=== PATIENT | male | born 1940 | race Caucasian/White ===

== ENCOUNTER 2019-09-07 08:00 | Outpatient (CLI) | payer MEDICARE, OTHER | END 2019-09-07 23:59 | disposition home or self-care (01) | LOC: LAB.WCP 08:00 | DX: C61 Malignant neoplasm of prostate (principal) | CPT/HCPCS: 36415; 82565 ==

== ENCOUNTER 2019-09-14 09:16 | Outpatient (CLI) | payer MEDICARE, OTHER ==
[2019-09-14] MEDS ORDERED: IOVERSOL 320 100 ML VIAL IVP ONE ×2 (09:38→11:09)
[2019-09-14] MEDS ORDERED: IOVERSOL 320 50 ML VIAL ONE (09:38)
[2019-09-14 10:50] LABS: CREATININE 0.8 mg/dL (0.6-1.2)
[2019-09-14] MEDS ORDERED: IOVERSOL 320 50 ML VIAL PO ONE (11:09)
--- NOTE | 2019-09-15 22:10 | CT Report ---
Reason: PROSTATE CA Procedure Date: 09/14/2019 Accession Number: [id number] / [id number] Procedure: CT - Abdomen/Pelvis W CPT Code: Final Report FULL RESULT: EXAM: CT ABDOMEN AND PELVIS EXAM DATE: 09/14/2019 11:08 AM. CLINICAL HISTORY: PROSTATE cancer. COMPARISONS: ABDOMEN/PELVIS W/WO 11/09/2013 11:35 AM BONE SCAN 09/14/2019 12:56 PM. TECHNIQUE: Routine helical CT imaging was performed through the abdomen and pelvis. IV contrast: 90 mL Optiray 320. Enteric contrast: Positive. Reconstructions: Coronal and sagittal. In accordance with CT protocol optimization, one or more of the following dose reduction techniques were utilized for this exam: automated exposure control, adjustment of mA and/or KV based on patient size, or use of iterative reconstructive technique. FINDINGS: Lung Bases: Unremarkable. Liver: Normal. Gallbladder/Bile Ducts: Normal gallbladder. Mildly dilated common bile duct without visualized obstructing stone or lesion, similar to prior and may be senescent. Spleen: Normal. Pancreas: Mild atrophy. Adrenal Glands: Tiny right adrenal nodule unchanged. Normal left adrenal. Kidneys: There are several small cysts bilaterally. No enhancing mass. Mild bilateral cortical scarring. No hydronephrosis. Peritoneal Cavity/Bowel: No obstruction. There is diverticulosis of the descending and sigmoid colon without diverticulitis. No free fluid, free air or adenopathy. No acute inflammatory process. Pelvic Organs: The bladder is unremarkable. The prostate gland is surgically absent. No abnormal soft tissue within or adjacent to the surgical bed. No pelvic lymphadenopathy. Retroperitoneum: No lymphadenopathy. Severe atherosclerosis. Mild ectasia of the infrarenal aorta without aneurysm, measuring up to 2.9 cm Bones: No aggressive or blastic osseous lesion. The bones may be demineralized. Other: Small fat-containing inguinal hernias bilaterally. IMPRESSION: No evidence of metastatic disease. Surgical changes from prostatectomy. RADIA
--- NOTE | 2019-09-16 07:52 | Nuclear Medicine Report ---
Reason: PROSTATE CA Procedure Date: 09/14/2019 Accession Number: [id number] / [id number] Procedure: NM - Bone Whole Body CPT Code: Final Report FULL RESULT: EXAM: BONE SCAN EXAM DATE: 09/14/2019 02:45 PM. CLINICAL HISTORY: PROSTATE CA. COMPARISON: ABDOMEN/PELVIS W09/14/2019 11:04 AM 01/03/2014 8:38 AM. TECHNIQUE: Following the intravenous administration of 33.1 mCi of technetium 99m MDP and an appropriate delay, a whole-body scan was performed in anterior and posterior projections. Site-specific spot views of the region of interest were obtained in various projections. FINDINGS: Normal renal radiotracer uptake and bladder activity. Normal soft tissue activity. Overall normal osseous uptake. Mild multilevel cervical and thoracic spinal uptake is probably degenerative. Asymmetric mild focal uptake at the lower right SI joint region is similar to prior and probably degenerative. Probable degenerative uptake at the acromioclavicular joints, wrists, knees. No suspicious focal uptake. IMPRESSION: 1. No convincing scintigraphic evidence of osseous metastasis. RADIA
== END 2019-09-14 09:17 | disposition home or self-care (01) ==
LOC: DI 09:16
PROVIDERS: ATTEND Radiology Radiation Oncology
DX: C61 Malignant neoplasm of prostate (principal); Z90.79 Acquired absence of other genital organ(s)
CPT/HCPCS: 36415; 74177; 78306; 82565; Q9967

== ENCOUNTER 2021-08-03 08:48 | Outpatient (CLI) | payer MEDICARE, OTHER | END 2021-08-03 08:49 | disposition critical access hospital (66) | LOC: EMS 08:48 | DX: R53.1 Weakness (principal); R20.2 Paresthesia of skin | CPT/HCPCS: A0425; A0429 ==

== ENCOUNTER 2021-08-03 09:06 | Emergency (ER) | payer MEDICARE, OTHER ==
[2021-08-03] MEDS ORDERED: ENALAPRILAT 1.25 MG/ML VIAL IVP STA (09:17)
--- NOTE | 2021-08-03 09:18 | ED Physician Documentation ---
PD HPI FOCAL NEURO - Stated complaint Stated Complaint: NUMBNESS - History obtained from History obtained from: Patient - History of Present Illness Timing - onset: Today, Last night Timing - duration: Minutes Timing - details: Gradual onset, Now resolved Severity of deficit: Mild Weakness: No: Arm, Hand Numbness: Arm, Hand, Right. No: Face, Leg Associated symptoms: Other (doubled vision/ diplopia for 5-10 minutes last evening, and feeling of right arm/hand humbness without weakness. No headache with it.). No: Headache, Nausea / vomiting Contributing factors: negative: Anticoagulated, Atrial fibrillation Baseline status: positive: A&OX3, ambulatory, indep Similar symptoms before: Has not had sx before Recently seen: Not recently seen Review of Systems Constitutional: denies: Fever, Chills Nose: denies: Rhinorrhea / runny nose, Congestion Throat: denies: Sore throat Cardiac: denies: Chest pain / pressure, Palpitations, Pedal edema, Calf pain Respiratory: denies: Dyspnea GI: denies: Nausea, Vomiting, Diarrhea PD PAST MEDICAL HISTORY - Past Medical History Cardiovascular: Hypertension (on Losartan) Respiratory: None Neuro: None Endocrine/Autoimmune: None - Present Medications Home Medications: Ambulatory Orders Medication Instructions Recorded Confirmed Atorvastatin Calcium 40 mg PO DAILY 08/03/21 08/03/21 Clopidogrel [Plavix] 75 mg PO DAILY 30 Days #30 tablet 08/03/21 Losartan [Cozaar] 50 mg PO DAILY 08/03/21 08/03/21 Metoprolol Succinate [Toprol Xl] 25 mg PO DAILY 30 Days #30 tablet 08/03/21 Omeprazole Magnesium 20 mg PO DAILY 08/03/21 08/03/21 - Allergies Allergies/Adverse Reactions: Allergies Allergy/AdvReac Type Severity Reaction Status Date / Time No Known Drug Allergies Allergy Verified 08/03/21 09:17 PD ED PE NORMAL - Vitals Vital signs reviewed: Yes - General General: Alert and oriented X 3, No acute distress, Well developed/nourished - HEENT HEENT: Atraumatic, Ears normal, Moist mucous membranes, Pharynx benign - Neck Neck: Supple, no meningeal sign, No adenopathy, No bruit - Cardiac Cardiac: RRR, No murmur - Respiratory Respiratory: Clear bilaterally - Abdomen Abdomen: Soft, Non tender - Derm Derm: Normal color, Warm and dry - Extremities Extremities: No tenderness to palpate, Normal ROM s pain, No edema, No calf tenderness / cord - Neuro Neuro: Alert and oriented X 3, No motor deficit, Normal speech Eye Opening: Spontaneous Motor: Obeys Commands Verbal: Oriented GCS Score: 15 NIHSS - Level of Consciousness Level of consciousness: (0) Alert, Keenly responsive LOC Questions: (0) Answers both Q's correct LOC Commands: (0) Performs both correctly - Gaze Best Gaze: (0) Normal - Visual Visual: (0) No loss - Facial Palsy Facial Palsy: (0) Normal, symmetrical movement - Motor Arms (both separate) Motor Arm (right): (0) No drift Motor Arm (left): (0) No drift - Motor Legs (both separate) Motor Leg (right): (0) No drift Motor Leg (left): (0) No drift - Limb Ataxia Limb Ataxia: (0) Absent - Sensory Sensory: (0) Normal - Dysarthria Dysarthria: (0) Normal - Extinction and Inattention (formally neg Extinction and inattention: (0) No abnormality Results - Vitals Vitals: Vital Signs - 24 hr 08/03/21 08/03/21 08/03/21 09:18 09:51 10:21 Temperature 37.2 C Heart Rate 73 66 72 Respiratory 22 20 18 Rate Blood Pressure 195/104 H 166/71 H 148/74 H O2 Saturation 97 97 98 08/03/21 08/03/21 08/03/21 10:30 11:00 11:30 Temperature Heart Rate 74 71 72 Respiratory 18 13 18 Rate Blood Pressure 136/74 H 140/65 H 141/76 H O2 Saturation 97 96 96 08/03/21 08/03/21 08/03/21 12:00 12:30 13:00 Temperature Heart Rate 67 70 65 Respiratory 15 18 19 Rate Blood Pressure 133/71 H 130/70 140/76 H O2 Saturation 100 97 98 08/03/21 08/03/21 13:30 14:00 Temperature Heart Rate 67 65 Respiratory 16 18 Rate Blood Pressure 132/70 H 140/69 H O2 Saturation 97 98 Oxygen O2 Source Room air - EKG (time done) 09:222 Rate: Rate (enter#) (71) Rhythm: NSR [place]: Normal Intervals: Normal [place] QRS: Normal Ischemia: Normal ST segments. No: ST elevation c/w ischemia, ST depression - Labs Labs: Laboratory Tests 08/03/21 08/03/21 08/03/21 09:31 09:31 09:31 WBC 5.9 RBC 4.18 L Hgb 12.1 L Hct 37.0 L MCV 88.5 MCH 28.9 MCHC 32.7 RDW 14.1 Plt Count 258 MPV 8.8 Neut # (Auto) 3.7 Lymph # (Auto) 1.4 L [place] # (Auto) 0.7 Eos # (Auto) 0.1 Baso # (Auto) 0.0 Absolute Nucleated RBC 0.00 Nucleated RBC % 0.0 ESR Sodium 134 L Potassium 4.4 Chloride 102 Carbon Dioxide 26 Anion Gap 6.0 BUN 15 Creatinine 0.7 Estimated GFR (MDRD) 109 Glucose 104 H Calcium 8.8 Magnesium 2.2 Total Bilirubin 0.7 AST 15 ALT 12 Alkaline Phosphatase 49 Troponin I High Sens 7.5 Total Protein 7.3 Albumin 3.8 Globulin 3.5 Albumin/Globulin Ratio 1.1 Lipase 28 08/03/21 09:31 WBC RBC Hgb Hct MCV MCH MCHC RDW Plt Count MPV Neut # (Auto) Lymph # (Auto) [place] # (Auto) Eos # (Auto) Baso # (Auto) Absolute Nucleated RBC Nucleated RBC % ESR 30 H Sodium Potassium Chloride Carbon Dioxide Anion Gap BUN Creatinine Estimated GFR (MDRD) Glucose Calcium Magnesium Total Bilirubin AST ALT Alkaline Phosphatase Troponin I High Sens Total Protein Albumin Globulin Albumin/Globulin Ratio Lipase - Rads (name of study) angio head/neck Radiology: Prelim report reviewed (No bleed, focal brain abnormality nor flow abnormality. Neck portion showing 70-80% stenoses bilateral proximal carotids. ), See rad report carotid dopplers Radiology: Prelim report reviewed (c/w prior CT study. Velocities recorded. This study was at request of vascular surgery. ), See rad report PD MEDICAL DECISION MAKING - ED course Complexity details: reviewed results, re-evaluated patient (Sounds TIA. Normal head CTA. Neck CTA showing 80% stenoses bilaterally.), considered differential (BP quite elevated initially here. Consider hypertensive urgency leading to symptoms versus TIA/CVA, or bleed. ), d/w patient, d/w sales consultant residential manager (Rebeca BRAXTON for Vascular surgery service. Asked to get Doppler U/S for velocities and comparisions, BP control and antiplatelet and they will see patient this week in office. ) Departure - Departure Disposition: 01 Home, Self Care Clinical Impression: Hypertensive urgency, Carotid stenosis, bilateral, TIA (transient ischemic attack) Condition: Stable Record reviewed to determine appropriate education?: Yes Follow-Up: PRABHAKAR PEREZ MD [Physician No Access] - Hari Reyes MD [Primary Care Provider] - Prescriptions: Clopidogrel [Plavix] 75 mg PO DAILY 30 Days #30 tablet Metoprolol Succinate [Toprol Xl] 25 mg PO DAILY 30 Days #30 tablet Comments: Your symptoms are concerning for transient alteration in blood flow to the brain. This could have been an effect from the blood pressure being very high transiently in conjunction with some blockage partially of your carotid blood vessels. I talked with the vascular surgeon on-call for [facility]. Their phone number is [phone]. They suggested good blood pressure control and antiplatelet medication. They had requested the ultrasound of the neck as well. Call the vascular surgery office later today for an appointment later this week or early next week in follow-up of this. They want to assess and discuss with you potential interventions of the blockages versus following them over time. The concern would be the symptoms he would had with it. Return if recurrent episodes of symptoms. Continue your current medications. To that add metoprolol 25 mg daily and also clopidogrel 75 mg daily. I [facility] your [facility]. Discharge Date/Time: 08/03/21 14:15
[2021-08-03 09:48] LABS: BASOPHILS % (AUTO) 0.7 %; EOSINOPHILS # (AUTO) 0.1 10^3/uL (0.0-0.7); EOSINOPHILS % (AUTO) 1.5 %; HGB - HEMOGLOBIN 12.1 g/dL (14.0-18.0); LYMPHOCYTES # (AUTO) 1.4 10^3/uL (1.5-3.5); LYMPHOCYTES % (AUTO) 23.7 %; MEAN CORPUSCULAR HEMOGLOBIN 28.9 pg (27.0-31.0); MEAN CORPUSCULAR HGB CONC 32.7 g/dL (32.0-36.0); MEAN CORPUSCULAR VOLUME 88.5 fL (80.0-94.0); MEAN PLATELET VOLUME 8.8 fL (7.4-11.4); MONOCYTES # (AUTO) 0.7 10^3/uL (0.0-1.0); MONOCYTES % (AUTO) 11.8 %; NEUTROPHILS # (AUTO) 3.7 10^3/uL (1.5-6.6); NEUTROPHILS % (AUTO) 62.1 %; PLT - PLATELET COUNT 258 10^3/uL (130-450); RED BLOOD COUNT 4.18 10^6/uL (4.70-6.10); RED CELL DISTRIBUTION WIDTH 14.1 % (12.0-15.0); WHITE BLOOD COUNT 5.9 x10^3/uL (4.8-10.8)
[2021-08-03 09:53] LABS: ALBUMIN 3.8 g/dL (3.2-5.5); ALBUMIN/GLOBULIN RATIO 1.1 (1.0-2.2); BILIRUBIN,TOTAL 0.7 mg/dL (0.2-1.0); CALCIUM 8.8 mg/dL (8.5-10.3); CREATININE 0.7 mg/dL (0.6-1.2); MAGNESIUM 2.2 mg/dL (1.7-2.8); POTASSIUM 4.4 mmol/L (3.5-5.0); TOTAL PROTEIN 7.3 g/dL (6.7-8.2)
[2021-08-03] MEDS ORDERED: iohexoL-300 100 ML VIAL ONE (10:02)
--- NOTE | 2021-08-03 10:34 | CT Report ---
PROCEDURE: ANGIO NECK W INDICATIONS: L sided facial droop, L neck pain CONTRAST: IV CONTRAST: Isovue 300 ml: 80 PO CONTRAST: *NO PO CONTRAST TECHNIQUE: After the administration of intravenous contrast, 1.5 mm axial sections acquired from the aortic arch to the [place]. Coronal 3-D maximum intensity projection (MIP) and/or volume rendering ref ormats were then performed. For radiation dose reduction, the following was used: automated exposur e control, adjustment of mA and/or kV according to patient size. COMPARISON: Correlation is made with the accompanying brain angiogram, 08/03/2021. FINDINGS: Image quality: Excellent. Carotid system: The great vessels demonstrate a conventional anatomy as they arise from the aortic a rch. The origins of the common carotid arteries appear patent. The common carotid arteries demonstr ate normal calibers and courses. The bifurcation regions demonstrate atherosclerotic calcification a nd irregularity. There is 70-80% narrowing seen involving the left proximal internal carotid artery. The right internal carotid artery demonstrates approximately 80% narrowing proximally. The more dista l internal carotid arteries demonstrate normal course and caliber. Posterior circulation: The origins of the vertebral arteries appear patent. The more superior porti ons of the vertebral arteries demonstrate normal caliber. Both vertebral arteries demonstrate mild to moderate tortuosity. Soft tissues: Visualized neck soft tissues demonstrate no suspicious abnormalities. The thyroid is normal in size and there are no incidental findings. This patient with a given history of left-sided facial droop, and is given to the course of the left-sided facial nerve, including within the left pa rotid gland. No definite masses are seen. No similar changes can be seen at the lung apices, includin g subpleural bleb formation. Presumed scarring can be seen at the lung apices. Bones: No suspicious bony lesions. Visualized cervical spine appears normally aligned. Moderate l ower cervical spine degenerative changes are seen. IMPRESSION: Focal narrowing can be seen involving both proximal internal carotid arteries, with approximate 80% n arrowing on the right side and 70-80% narrowing of the left. No significant vertebral artery abnormality is seen. The estimate of stenosis included in the report of the imaging study was calculated using the NASCET method Reviewed by: Sylvester Ortiz MD on 08/03/2021 9:32 AM [facility] Approved by: Sylvester Ortiz MD on 08/03/2021 9:32 AM [facility] Station ID: [id number]
--- NOTE | 2021-08-03 10:36 | CT Report ---
PROCEDURE: ANGIO HEAD W/WO INDICATIONS: L sided facial droop CONTRAST: IV CONTRAST: Isovue 300 ml: 80 PO CONTRAST: *NO PO CONTRAST TECHNIQUE: Precontrast 4.5 mm thick angled axial sections acquired from the foramen magnum to the vertex. Afte r the administration of intravenous contrast, 1 mm thick sections acquired through the [place] is. Postcontrast 4.5 mm thick sections then re-acquired from the foramen magnum to the vertex. 3-di mensional xlrxtxj-kndzxxygw-cunlptvtbr (MIP) and/or volume rendering reformats were acquired of the c entral intracranial vasculature. For radiation dose reduction, the following was used: automated ex posure control, adjustment of mA and/or kV according to patient size. COMPARISON: Correlation is made with the accompanying neck CT angiogram, 08/03/2021. FINDINGS: Image quality: There is streak artifact seen through the skull base. The study is mildly limited by bolus timing, with venous contamination. Anterior circulation: Intracranial internal carotid arteries are normal in size and flow. The flow within the paired anterior cerebral arteries is normal and symmetric. The flow within the middle cer ebral arteries is normal and symmetric. The anterior communicating artery is seen. No aneurysms are seen. Posterior circulation: Visualized portions of the vertebral arteries demonstrate normal caliber, and join to form a normal appearing basilar artery. Incidental note is made of a prominent left flexographic printing machinist ior communicating artery, with a diminutive left P1 segment. 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 Flow within the posterior cerebral arteries is normal and symmetric. N o aneurysms are seen. CSF spaces: Ventricles are normal in size and shape. Basal cisterns are patent. No extra-axial flu id collections. Brain: No midline shift. No intracranial bleeds or masses. Steven-white matter interface appears int act. Age-appropriate brain parenchymal volume loss and chronic small vessel ischemic change can be se en. In this patient with a presenting history of left-sided facial droop, history is given to the course of the left facial nerve, including within the parotid gland. No masses are detected on this study. Skull and face: Calvarium and facial bones appear intact, without suspicious lesions. Sinuses: Visualized sinuses and mastoids are clear. IMPRESSION: No intracranial hemorrhage is seen. No significant intracranial abnormality is seen. No significant intracranial arterial abnormalities are seen. Age-appropriate brain parenchymal volume loss and chronic small vessel ischemic change can be seen. Reviewed by: Sylvester Ortiz MD on 08/03/2021 9:35 AM [facility] Approved by: Sylvester Ortiz MD on 08/03/2021 9:35 AM [facility] Station ID: [id number]
[2021-08-03] MEDS ORDERED: METOPROLOL SUCCINATE 25 MG TABLET PO STA (12:58)
[2021-08-03] MEDS ORDERED: CLOPIDOGREL 75 MG TABLET PO STA (12:59)
[2021-08-03 14:15] VITALS: BP 140/69
--- NOTE | 2021-08-03 14:17 | Ultrasound Report ---
PROCEDURE: Carotid Doppler Complete INDICATIONS: right arm numb transiently TECHNIQUE: Color and pulse Doppler interrogation was performed of both carotid systems, with image documentation and velocity measurements. COMPARISON: None. FINDINGS: Right side: Brachial blood pressure: 118/63 mm Hg. Common carotid artery peak systolic velocity: 72 cm/sec. Internal carotid artery peak systolic velocity: 203 cm/sec. Internal carotid artery end diastolic velocity: 41 cm/sec. External carotid artery peak systolic velocity: 162 cm/sec. ICA/CCA peak systolic ratio: 2.8 . Steven scale imaging description: Plaque is present the bifurcation Percent internal carotid artery stenosis: 50-69% stenosis . Vertebral artery: Flow direction is antegrade. Left side: Brachial blood pressure: 137/60 mm Hg. Common carotid artery peak systolic velocity: 100 cm/sec. Internal carotid artery peak systolic velocity: 235 cm/sec. Internal carotid artery end diastolic velocity: cm/sec. External carotid artery peak systolic velocity: 112 cm/sec. ICA/CCA peak systolic ratio: 2.35 . Steven scale imaging description: Plaque is present bifurcation Percent internal carotid artery stenosis: 50-69% stenosis likely at the higher end of the range . Vertebral artery: Flow direction is antegrade. IMPRESSION: 1. 50 to 69% stenosis of the right internal carotid artery. 2. 50-69% stenosis of the left internal carotid artery likely at the higher end of the range. The estimate of stenosis included in the report of the imaging study was calculated using the NASCET method Reviewed by: Cassie Buitrago MD on 08/03/2021 2:16 PM PST Approved by: Cassie Buitrago MD on 08/03/2021 2:16 PM PST Station ID: [id number]
[2021-08-03] MEDS ORDERED: iohexoL-300 100 ML VIAL IVP ONE (18:24)
== END 2021-08-03 14:15 | disposition home or self-care (01) ==
LOC: EDUNIT# → ED 09:06
DX: I65.23 Occlusion and stenosis of bilateral carotid arteries (principal); I16.0 Hypertensive urgency
CPT/HCPCS: 36415; 70496; 70498; 80053; 83690; 83735; 84484; 85025; 85651; 93005; 93880; 96374; 99284; A9270; Q9967

== ENCOUNTER 2021-10-26 06:48 | Outpatient (CLI) | payer MEDICARE, OTHER | END 2021-10-26 06:49 | disposition critical access hospital (66) | LOC: EMS 06:48 | DX: R07.9 Chest pain, unspecified (principal) | CPT/HCPCS: A0425; A0427 ==

== ENCOUNTER 2021-10-26 07:05 | Emergency (ER) | payer MEDICARE, OTHER ==
[2021-10-26] MEDS ORDERED: SODIUM CHLORIDE 0.9% 1,000 ML IV STA (07:15)
[2021-10-26 07:29] LABS: BASOPHILS % (AUTO) 0.5 %; EOSINOPHILS # (AUTO) 0.1 10^3/uL (0.0-0.7); EOSINOPHILS % (AUTO) 1.7 %; HCT - HEMATOCRIT 28.5 % (42.0-52.0); HGB - HEMOGLOBIN 8.9 g/dL (14.0-18.0); LYMPHOCYTES # (AUTO) 1.3 10^3/uL (1.5-3.5); LYMPHOCYTES % (AUTO) 21.1 %; MEAN CORPUSCULAR HGB CONC 31.2 g/dL (32.0-36.0); MEAN CORPUSCULAR VOLUME 86.4 fL (80.0-94.0); MEAN PLATELET VOLUME 8.5 fL (7.4-11.4); MONOCYTES # (AUTO) 0.6 10^3/uL (0.0-1.0); MONOCYTES % (AUTO) 10.6 %; NEUTROPHILS # (AUTO) 3.9 10^3/uL (1.5-6.6); NEUTROPHILS % (AUTO) 65.9 %; PLT - PLATELET COUNT 268 10^3/uL (130-450); RED CELL DISTRIBUTION WIDTH 15.4 % (12.0-15.0); WHITE BLOOD COUNT 5.9 x10^3/uL (4.8-10.8)
--- NOTE | 2021-10-26 07:38 | ED Physician Documentation ---
PD HPI CHEST PAIN - Stated complaint Stated Complaint: CP - Chief complaint Chief Complaint: Cardiac - History obtained from History obtained from: Patient - Additional information Additional information: The patient comes to the emergency department chief complaint of a dull ache in his chest that started this morning around 6:00. He states he had gotten up from bed to watch TV and noticed that he had this ache in the inferior substernal area. Patient states it did not radiate anywhere else. No other associated symptoms, such as nausea, shortness of breath, diaphoresis, or lightheadedness. Pain was approximately a 3 out of 10. Nothing made it better or worse. The patient states it lasted about 20 minutes, then resolved on its own. The patient denies any chest pain anytime recently. He states he had something similar happen back in the s and was admitted for cardiac work-up, at which time he was cleared and thought to have "stomach issues". The patient states that he takes omeprazole. He denies recent dyspnea on exertion. He has not been ill with anything recently. He states he has chronic slight swelling in his left lower extremity but this is not worse than usual. No pain in his extremities. The patient has a history of hypertension, for which he takes medication. He does not have a history of diabetes and quit smoking 30 years ago. He denies any known coronary artery disease in his family. The patient does note that he had a TIA in August and had bilateral carotid stenting around that time. He is on an anticoagulant for this, though he cannot remember which one. He states that he is pain-free at this time and has no complaints. He is a patient of Dr. Hari Reyes. Review of Systems Ten Systems: 10 systems reviewed and negative Constitutional: reports: Reviewed and negative Eyes: reports: Reviewed and negative Ears: reports: Reviewed and negative Nose: reports: Reviewed and negative Throat: reports: Reviewed and negative Cardiac: reports: Chest pain / pressure Respiratory: reports: Reviewed and negative GI: reports: Reviewed and negative : reports: Reviewed and negative Skin: reports: Reviewed and negative Musculoskeletal: reports: Reviewed and negative Neurologic: reports: Reviewed and negative Psychiatric: reports: Reviewed and negative Endocrine: reports: Reviewed and negative Immunocompromised: reports: Reviewed and negative PD PAST MEDICAL HISTORY - Past Medical History Past Medical History: Yes Cardiovascular: Hypertension Respiratory: None Neuro: CVA, TIA Endocrine/Autoimmune: None GI: GERD : Other Other Past Medical History: Prostate cancer - Past Surgical History Past Surgical History: Yes - Present Medications Home Medications: Ambulatory Orders Medication Instructions Recorded Confirmed Atorvastatin Calcium 40 mg PO DAILY 08/03/21 10/26/21 Clopidogrel [Plavix] 75 mg PO DAILY 30 Days #30 tablet 08/03/21 10/26/21 Losartan [Cozaar] 50 mg PO DAILY 08/03/21 10/26/21 Metoprolol Succinate [Toprol Xl] 25 mg PO DAILY 30 Days #30 tablet 08/03/21 10/26/21 Omeprazole Magnesium 20 mg PO DAILY 08/03/21 10/26/21 Aspirin [Aspirin EC] 81 mg PO DAILY 10/26/21 10/26/21 - Allergies Allergies/Adverse Reactions: Allergies Allergy/AdvReac Type Severity Reaction Status Date / Time No Known Drug Allergies Allergy Verified 10/26/21 07:15 - Social History Does the pt smoke?: No Smoking Status: Never smoker PD ED PE NORMAL - Vitals Vital signs reviewed: Yes - General General: Alert and oriented X 3, No acute distress, Well developed/nourished - HEENT HEENT: Atraumatic, PERRL, EOMI, Moist mucous membranes - Neck Neck: Supple, no meningeal sign - Cardiac Cardiac: RRR, No murmur, Strong equal pulses - Respiratory Respiratory: No respiratory distress, Clear bilaterally - Abdomen Abdomen: Soft, Non tender, Non distended - Derm Derm: Normal color, Warm and dry, No rash - Extremities Extremities: No deformity, No calf tenderness / cord, Other (Very slight pitting edema of left lower extremity compared to right.) - Neuro Neuro: Alert and oriented X 3, health care social worker 2-12 intact, Normal speech, Other (Grossly intact) - Psych Psych: Normal mood, Normal affect Results - Vitals Vitals: Vital Signs - 24 hr 10/26/21 10/26/21 10/26/21 07:13 07:30 08:00 Temperature 36.2 C L Heart Rate 76 71 67 Respiratory 15 22 12 Rate Blood Pressure 172/81 H 179/77 H 144/72 H O2 Saturation 100 98 100 10/26/21 10/26/21 10/26/21 08:30 09:00 09:30 Temperature Heart Rate 66 64 65 Respiratory 18 19 21 Rate Blood Pressure 149/72 H 146/73 H 149/71 H O2 Saturation 100 100 100 Oxygen O2 Source Room air - EKG (time done) 0715 Rate: Rate (enter#) (71) Rhythm: NSR [place]: Normal Intervals: Normal MA QRS: Normal Ischemia: Normal ST segments Compare to prior EKG: Old EKG unavailable Computer interpretation: Agree with computer - Labs Labs: Laboratory Tests 10/26/21 10/26/21 10/26/21 07:20 07:20 07:20 WBC 5.9 RBC 3.30 L Hgb 8.9 L Hct 28.5 L MCV 86.4 MCH 27.0 MCHC 31.2 L RDW 15.4 H Plt Count 268 MPV 8.5 Neut # (Auto) 3.9 Lymph # (Auto) 1.3 L [place] # (Auto) 0.6 Eos # (Auto) 0.1 Baso # (Auto) 0.0 Absolute Nucleated RBC 0.00 Nucleated RBC % 0.0 Sodium 137 Potassium 4.2 Chloride 105 Carbon Dioxide 24 Anion Gap 8.0 BUN 16 Creatinine 0.8 Estimated GFR (MDRD) 93 Glucose 111 H Calcium 8.8 Total Bilirubin 0.4 AST 14 ALT 12 Alkaline Phosphatase 44 Troponin I High Sens 8.3 Total Protein 6.6 L Albumin 3.5 Globulin 3.1 Albumin/Globulin Ratio 1.1 Lipase 34 10/26/21 09:02 WBC RBC Hgb Hct MCV MCH MCHC RDW Plt Count MPV Neut # (Auto) Lymph # (Auto) [place] # (Auto) Eos # (Auto) Baso # (Auto) Absolute Nucleated RBC Nucleated RBC % Sodium Potassium Chloride Carbon Dioxide Anion Gap BUN Creatinine Estimated GFR (MDRD) Glucose Calcium Total Bilirubin AST ALT Alkaline Phosphatase Troponin I High Sens 8.5 Total Protein Albumin Globulin Albumin/Globulin Ratio Lipase - Rads (name of study) Chest x-ray Radiology: Final report received, EMP read indepedently, See rad report (Negative) PD MEDICAL DECISION MAKING - ED course Complexity details: reviewed old records, reviewed results, re-evaluated patient, considered differential, d/w patient ED course: The patient was worked up with EKG, which was unremarkable, and laboratory studies, including 2 troponins, which were also negative. The patient was asymptomatic throughout his entire stay in the emergency department. I discussed with him that he will need to follow-up with Dr. Reyes soon as possible to discuss having a stress test done. We have discussed the usual indications for return. Departure - Departure Disposition: 01 Home, Self Care Clinical Impression: Chest pain Qualifiers: Chest pain type: unspecified Qualified Code(s): R07.9 - Chest pain, unspecified Condition: Stable Instructions: ED Chest Pain Atypical Unkn Cause Comments: Your laboratory studies, EKG, and chest x-ray all look good, including a repeat level of cardiac enzymes. As we have discussed, it is possible that your pain c ould be coming from your stomach, but it could also represent angina, it condition comes from having some clogged vessels in your heart. If not addressed, this condition can lead to heart attack later on. As such, it is important that you follow-up with Dr. Reyes to discuss having a stress test done to evaluate for this. If you develop severe chest pain that does not go away, particularly if it is associated with shortness of breath, nausea, sweating, or lightheadedness, he should return to the emergency department immediately. Otherwise, please make the soonest possible appointment with Dr. Reyes to follow-up on your symptoms. Discharge Date/Time: 10/26/21 09:38
[2021-10-26 07:41] LABS: ALBUMIN 3.5 g/dL (3.2-5.5); ALBUMIN/GLOBULIN RATIO 1.1 (1.0-2.2); BILIRUBIN,TOTAL 0.4 mg/dL (0.2-1.0); CALCIUM 8.8 mg/dL (8.5-10.3); CREATININE 0.8 mg/dL (0.6-1.2); POTASSIUM 4.2 mmol/L (3.5-5.0); TOTAL PROTEIN 6.6 g/dL (6.7-8.2)
--- NOTE | 2021-10-26 07:50 | XRAY Report ---
PROCEDURE: Chest 1 View X-Ray INDICATIONS: Chest pain TECHNIQUE: One view of the chest was acquired. COMPARISON: None available. FINDINGS: Surgical changes and devices: None. Lungs and pleura: No pleural effusions or pneumothorax. Lungs are clear. Mediastinum: Mediastinal contours appear normal. Heart size is normal. Bones and chest wall: No suspicious bony lesions. Overlying soft tissues appear unremarkable. IMPRESSION: No acute cardiopulmonary disease. Reviewed by: Nayana Irwin MD on 10/26/2021 7:48 AM PDT Approved by: Nayana Irwin MD on 10/26/2021 7:48 AM PDT Station ID: [id number]
--- OUTSIDE RECORDS SUMMARY | 2021-10-26 07:54 | EXTERNAL MEDICAL SUMMARY RPT | Continuity of Care Document ---
:1940 Author Organization [facility] Address [address] [place] [address] Phone Allergies No information. Encounters No information. Medications No information. 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
[2021-10-26 09:32] VITALS: BP 149/71
== END 2021-10-26 09:38 | disposition home or self-care (01) ==
LOC: EDUNIT# → ED 07:05
DX: R07.9 Chest pain, unspecified (principal); Z95.5 Presence of coronary angioplasty implant and graft; Z79.01 Long term (current) use of anticoagulants; I10 Essential (primary) hypertension
CPT/HCPCS: 36415; 80053; 83690; 84484; 85025; 93005; 99284

== ENCOUNTER 2021-11-23 22:34 | Outpatient (CLI) | payer MEDICARE, OTHER ==
--- NOTE | 2021-11-24 15:24 | Ultrasound Report ---
PROCEDURE: Ankle Brachial Index INDICATIONS: BILATERAL LEG PAIN TECHNIQUE: Ankle-brachial indices were obtained bilaterally and recorded. COMPARISONS: None. FINDINGS: Right ankle brachial index (COLIN): 0.74 Left ankle brachial index (COLIN): 0.71 Mild to moderate calcification is present bilaterally. Monophasic flow is noted in the posterior tibi al artery distally on the left. IMPRESSION: Mild to moderate vascular disease with ABIs measuring 0.74, 0.71. Reviewed by: Cassie Buitrago MD on 11/24/2021 3:23 PM PDT Approved by: Cassie Buitrago MD on 11/24/2021 3:23 PM PDT Station ID: [id number]
== END 2021-11-23 22:35 | disposition home or self-care (01) ==
LOC: DI 22:34
PROVIDERS: ATTEND Physician Assistant
DX: I70.203 Unspecified atherosclerosis of native arteries of extremities, bilateral legs (principal)
CPT/HCPCS: 93922

== ENCOUNTER 2021-12-31 06:24 | Outpatient (CLI) | payer MEDICARE, OTHER ==
--- NOTE | 2021-12-31 18:07 | Ultrasound Report ---
PROCEDURE: Duplex Lwr Ext Arterial Bilat INDICATIONS: BILATERAL LEG PAIN TECHNIQUE: Color and pulse Doppler interrogation was performed of both lower extremity arterial systems, with im age documentation. COMPARISON: Ankle-brachial indices dated 11/23/2021 FINDINGS: Right lower extremity: Common femoral artery: 203.9 cm/sec, with biphasic flow. Deep femoral artery: 131.6 cm/sec, with biphasic flow. Proximal superficial femoral artery: 80.3 cm/sec, with biphasic flow. Mid superficial femoral artery: 29.6 cm/sec, with biphasic flow. Distal superficial femoral artery: 82.6 cm/sec, with biphasic flow. Popliteal artery: 40.6 cm/sec, with biphasic flow. Posterior tibial artery: 33.9 cm/sec, with biphasic flow. Anterior tibial artery/dorsalis pedis: 75.5/44.3 cm/sec, with biphasic flow. Steven-scale imaging description: There is diffuse atherosclerotic calcification. There is a potential moderate stenosis of the distal right SFA with collateral. No evidence of inflow disease. Left lower extremity: Common femoral artery: 151.4 cm/sec, with biphasic flow. Deep femoral artery: 75.5 cm/sec, with biphasic flow. Proximal superficial femoral artery: 98.4 cm/sec, with biphasic flow. Mid superficial femoral artery: 124.3 cm/sec, with biphasic flow. Distal superficial femoral artery: 229.2 cm/sec, with turbulent flow. Distal to this, there is monop hasic flow. Popliteal artery: 47.5 cm/sec, with biphasic flow. Posterior tibial artery: 26.3 cm/sec, with monophasic flow. Anterior tibial artery/dorsalis pedis: 49.5/35 cm/sec, with biphasic flow. Steven-scale imaging description: Diffuse plaque. Probable focal severe distal SFA stenosis. Posterior tibial disease. IMPRESSION: 1. No evidence of inflow stenosis bilaterally. 2. Right lower extremity arterial runoff significant for a possible moderate stenosis of the distal S FA with the presence of a collateral. 3. Probable severe focal distal left SFA stenosis. Left posterior tibial disease. Reviewed by: Arcadio Huang MD on 12/31/2021 6:06 PM PDT Approved by: Arcadio Huang MD on 12/31/2021 6:06 PM PDT Station ID: [id number]
== END 2021-12-31 06:25 | disposition home or self-care (01) ==
LOC: DI 06:24
PROVIDERS: ATTEND Physician Assistant
DX: I70.202 Unspecified atherosclerosis of native arteries of extremities, left leg (principal)
CPT/HCPCS: 93925

== ENCOUNTER 2022-07-14 06:02 | Outpatient (CLI) | payer MEDICARE, OTHER | END 2022-07-14 06:03 | disposition EMS.NT | LOC: EMS 06:02 | DX: R42 Dizziness and giddiness (principal); R11.2 Nausea with vomiting, unspecified ==

== ENCOUNTER 2023-08-14 09:09 | Emergency (ER) | payer MEDICARE, OTHER ==
--- NOTE | 2023-08-14 10:24 | ED Physician Documentation ---
PD HPI NECK PAIN - Stated complaint Stated Complaint: NECK PX - Chief complaint Chief Complaint: Trauma Hd/Nk - History obtained from History obtained from: Patient - Additional information Additional information: Patient is an 82-year-old male with a history of hypertension presenting for evaluation of right-sided neck pain that has been intermittent for the past 5 weeks but worse today. Denies any known injury or trauma. Reports he was told he has a pinched nerve back in his 20s after an injury. Denies though that he has had ongoing neck issues since. Reports the pain as a sharp pain that he notices when he moves in a certain way. He does report some radiation to the right shoulder. No fevers. Does not take a blood thinner other than baby aspirin. Denies chest pain, shortness of air, numbness or weakness in upper extremities. Denies abdominal symptoms or lower extremity weakness.He did take a dose of ibuprofen this morning. Review of Systems Constitutional: denies: Fever Cardiac: denies: Chest pain / pressure Respiratory: denies: Dyspnea GI: denies: Abdominal Pain Musculoskeletal: reports: Neck pain PD PAST MEDICAL HISTORY - Past Medical History Cardiovascular: Hypertension Respiratory: None Neuro: CVA, TIA Endocrine/Autoimmune: None GI: GERD : Other - Past Surgical History Past Surgical History: Yes - Present Medications Home Medications: Ambulatory Orders Medication Instructions Recorded Confirmed Atorvastatin Calcium 40 mg PO DAILY 08/03/21 10/26/21 Clopidogrel [Plavix] 75 mg PO DAILY 30 Days #30 tablet 08/03/21 10/26/21 Losartan [Cozaar] 50 mg PO DAILY 08/03/21 10/26/21 Metoprolol Succinate [Toprol Xl] 25 mg PO DAILY 30 Days #30 tablet 08/03/21 10/26/21 Omeprazole Magnesium 20 mg PO DAILY 08/03/21 10/26/21 Aspirin [Aspirin EC] 81 mg PO DAILY 10/26/21 10/26/21 Cyclobenzaprine [Flexeril] 5 - 10 mg PO TID PRN #15 tablet 08/14/23 Lidocaine [Lidoderm] 1 each TP DAILY PRN #10 patch 08/14/23 - Allergies Allergies/Adverse Reactions: Allergies Allergy/AdvReac Type Severity Reaction Status Date / Time No Known Drug Allergies Allergy Verified 08/14/23 09:25 - Social History Does the pt smoke?: No Smoking Status: Never smoker PD ED PE NORMAL - General General: Alert and oriented X 3, No acute distress, Well developed/nourished - HEENT HEENT: Atraumatic, Moist mucous membranes, Pharynx benign - Neck Neck: Supple, no meningeal sign, No bony TTP, No adenopathy - Cardiac Cardiac: RRR, Strong equal pulses - Respiratory Respiratory: No respiratory distress, Clear bilaterally - Abdomen Abdomen: Soft, Non tender, Non distended - Derm Derm: Warm and dry - Extremities Extremities: No deformity, Other (Normal strength with shoulder extension, arm flexion and extension, wrist extension and hand grasp) - Neuro Neuro: Alert and oriented X 3, No motor deficit, No sensory deficit, Normal speech PD ED PE EXPANDED - HEENT HEENT Visual: 1 - tenderness Results - Vitals Vitals: Vital Signs - 24 hr 08/14/23 08/14/23 09:21 10:39 Temperature 36.0 C L Heart Rate 71 65 Respiratory 18 18 Rate Blood Pressure 197/92 H 181/89 H O2 Saturation 100 99 Oxygen O2 Source Room air PD Medical Decision Making - ED course ED course: Patient is an 82-year-old male with atraumatic right-sided neck pain. No midline tenderness. Has good range of motion without much difficulty. Normal neuroexam. No falls or reported trauma. Do not think CT imaging would be particularly helpful as he does not have a mechanism for fracture and has a normal neuroexam. Discussed trial of supportive treatment including lidocaine patches, anti-inflammatories and muscle relaxer with need for close follow-up with primary care provider. Patient is counseled on concerning symptoms to return for. Departure - Departure Disposition: 01 Home, Self Care Clinical Impression: Neck pain on right side Condition: Stable Instructions: ED Neck Back Pain General Follow-Up: Hari Reyes MD [Primary Care Provider] - Prescriptions: Cyclobenzaprine [Flexeril] 5 - 10 mg PO TID PRN #15 tablet PRN Reason: Spasms Lidocaine [Lidoderm] 1 each TP DAILY PRN #10 patch PRN Reason: Moderate Pain (Level 4-6) Comments: You need close follow-up with your primary care provider regarding your neck pain. You may need further testing such as an MRI. I have sent prescriptions for medications that I hope will help you with your symptoms to [facility]. This includes a muscle relaxer called cyclobenzaprine or Flexeril. The tablets for 10 mg but this medication can make you feel drowsy so I would recommend starting with 1/2 tablet (5 mg) first to see how you feel with this and to see if this is an adequate dose. Continue with anti-inflammatory such as acetaminophen. Return to the emergency department with any worsening symptoms such as numbness or weakness. Forms: PCP List Discharge Date/Time: 08/14/23 10:39
[2023-08-14] MEDS: LIDOCAINE PATCH 4% TOP STA (10:39)
[2023-08-14 10:45] VITALS: BP 181/89; O2SAT 99
== END 2023-08-14 10:39 | disposition home or self-care (01) ==
LOC: ED 09:09
DX: M54.2 Cervicalgia (principal); I10 Essential (primary) hypertension
CPT/HCPCS: 99282; 99283; A9270

== ENCOUNTER 2023-08-15 09:27 | Emergency (ER) | payer MEDICARE, OTHER ==
[2023-08-15] MEDS: predniSONE 20 MG TABLET PO STA (10:49)
--- NOTE | 2023-08-15 11:57 | ED Physician Documentation ---
PD HPI NECK PAIN - Stated complaint Stated Complaint: NECK PX,RT ARM PX - Chief complaint Chief Complaint: General - History obtained from History obtained from: Patient - Additional information Additional information: Patient is an 82-year-old male with a history of hypertension Presenting for evaluation of right-sided neck pain that has been intermittent for the past 5 weeks but worse for the past 2 days. Denies any known injury or trauma. Was seen here yesterday with similar symptoms and prescribed lidocaine patches and Flexeril. He said he took a dose yesterday without any significant improvement. He was able to sleep comfortably overnight. But the pain returned again this morning. He says the pain is worse with certain movements. He reports an aching discomfort into the right arm. No numbness.Takes a baby aspirin. Denies pain lower in the back, chest pain, shortness of air. Review of Systems Constitutional: denies: Fever Cardiac: denies: Chest pain / pressure Respiratory: denies: Dyspnea GI: denies: Abdominal Pain Musculoskeletal: reports: Neck pain PD PAST MEDICAL HISTORY - Past Medical History Past Medical History: Yes Cardiovascular: Hypertension, High cholesterol, Other Respiratory: None Neuro: CVA, TIA Endocrine/Autoimmune: None GI: GERD : Benign prostate hypertrophy, Other Psych: None Musculoskeletal: None Derm: None Other Past Medical History: prostate cancer - Past Surgical History Past Surgical History: Yes - Present Medications Home Medications: Ambulatory Orders Medication Instructions Recorded Confirmed Atorvastatin Calcium 40 mg PO DAILY 08/03/21 08/15/23 Losartan [Cozaar] 50 mg PO DAILY 08/03/21 08/15/23 Omeprazole Magnesium 20 mg PO DAILY 08/03/21 08/15/23 Aspirin [Aspirin EC] 81 mg PO DAILY 10/26/21 08/15/23 Cyclobenzaprine [Flexeril] 5 - 10 mg PO TID PRN #15 tablet 08/14/23 08/15/23 Lidocaine [Lidoderm] 1 each TP DAILY PRN #10 patch 08/14/23 08/15/23 Oxycodone HCl/Acetaminophen 1 each PO Q6H PRN #14 tablet 08/15/23 [Percocet 5-325 mg Tablet] predniSONE [Deltasone] 20 mg PO [id number] #21 tab 08/15/23 - Allergies Allergies/Adverse Reactions: Allergies Allergy/AdvReac Type Severity Reaction Status Date / Time No Known Drug Allergies Allergy Verified 08/15/23 09:44 - Social History Does the pt smoke?: No Smoking Status: Former smoker Does the pt drink ETOH?: No Does the pt have substance abuse?: No - Immunizations Immunizations are current?: Yes - POLST Patient has POLST: No PD ED PE NORMAL - General General: Alert and oriented X 3, No acute distress, Well developed/nourished - HEENT HEENT: Atraumatic, Moist mucous membranes, Pharynx benign - Neck Neck: Supple, no meningeal sign, Other (Right paracervical tenderness, mild midline tenderness, no bony step-offs, no erythema) - Cardiac Cardiac: RRR, Strong equal pulses - Respiratory Respiratory: No respiratory distress, Clear bilaterally - Derm Derm: Warm and dry - Extremities Extremities: No tenderness to palpate, Normal ROM s pain, Other (Normal strength with shoulder extension, arm flexion and extension, wrist extension and hand grasp) - Neuro Neuro: Alert and oriented X 3, No motor deficit, No sensory deficit, Normal speech Results - Vitals Vitals: Vital Signs - 24 hr 08/15/23 08/15/23 09:44 12:38 Temperature 36 C L 36.2 C L Heart Rate 72 74 Respiratory 18 16 Rate Blood Pressure 181/83 H 186/81 H O2 Saturation 99 96 Oxygen O2 Source Room air PD Medical Decision Making - ED course Complexity details: reviewed results, d/w patient ED course: Patient is an 82-year-old male presenting for evaluation of right-sided neck pain radiating into the right arm. Has normal strength and sensation and pulses distally are intact. Doubt dissection. No reported trauma. Has good range of motion of the neck. Was seen here yesterday and without any improvement with anti-inflammatories and muscle relaxers. Given age and radicular symptoms I obtained an MRI of the cervical spine. There is no signs of impingement. Significant degenerative changes. Patient started on a course of prednisone as well as pain medication. He is scheduled to see his PCP this afternoon. I did provide him a copy with his MRI.Patient counseled on return precautions for any worsening symptoms. Departure - Departure Disposition: 01 Home, Self Care Clinical Impression: Neck pain on right side Condition: Stable Instructions: ED Neck Back Pain General Follow-Up: Hari Reyes MD [Primary Care Provider] - Prescriptions: predniSONE [Deltasone] 20 mg PO [id number] #21 tab Oxycodone HCl/Acetaminophen [Percocet 5-325 mg Tablet] 1 each PO Q6H PRN #14 tablet PRN Reason: pain Comments: I have sent a prescription for a course of steroids along with pain medications to [facility] in [place]. Please follow-up with your primary care provider this afternoon with your already scheduled appointment. I have included your MRI report below and I would recommend taking this page with you to your appointment. Your blood pressure has also been elevated. I would recommend follow-up with your PCP regarding your blood pressure. EXAM: [id number] MRI/CERVWO ([id number]) PROCEDURE: Cervical Spine WO INDICATIONS: neck pain into R arm; weakness TECHNIQUE: Noncontrast sagittal T1 spin echo and T2 fast spin echo, sagittal STIR, foraminal oblique sagittal T2 fast spin echo, and axial gradient echo or T2 fast spin echo through the cervical spine. COMPARISON: Correlation is made with neck CT angiogram: 08/03/2021. FINDINGS: Image quality: Excellent. Alignment and Curvature: There is normal bony alignment. Bone Marrow: Marrow demonstrates normal overall signal. Spinal Cord: Visualized spinal cord has normal size and signal. No cerebellar tonsillar herniation. Paraspinous Soft Tissues: No paravertebral masses. Prevertebral soft tissues are normal in thickness. C2-C3: The disc height is well-preserved. There is loss of disc signal seen. Moderate disc osteophyte complex is seen. There there is mild right-sided and moderate left- sided facet hypertrophy. Moderate bilateral neuroforaminal narrowing can be seen, left worse than right. No central canal narrowing is seen. C3-C4: Mild loss of disc height and disc signal are seen. Moderate disc osteophyte complex is seen, which is eccentric to the right. There is a mild central disc osteophyte protrusion. There is moderate right-sided and at least moderate left-sided facet hypertrophy. Moderate to severe bilateral neuroforaminal narrowing can be seen. Moderate central canal narrowing is seen, with minimal mass effect upon the ventral spinal cord. C4-C5: The disc height is well-preserved. There is loss of disc signal seen. Moderate disc osteophyte complex is seen. There is a central disc osteophyte protrusion. Note is made of an annular fissure posteriorly. Moderate facet hypertrophy is seen. There is moderate right-sided and mild to moderate left-sided neuroforaminal narrowing. Mild to moderate central canal narrowing is seen, with minimal mass effect upon the ventral spinal cord. C5-C6: Moderate loss of disc height and signal are seen. Moderate disc osteophyte complex is seen, which is eccentric to the right. Moderate facet hypertrophy is seen. There is moderate to severe right-sided and mild to moderate left-sided neuroforaminal narrowing. Mild to moderate central canal narrowing is seen, with minimal mass effect upon the ventral spinal cord. C6-C7: Moderate loss of disc height and signal are seen. Moderate disc osteophyte complex is seen, with a central/left disc osteophyte protrusion. There is moderate right-sided and mild left-sided facet hypertrophy. There is moderate to severe bilateral neuroforaminal narrowing seen. Moderate central canal narrowing is seen. Associated mass effect is seen upon the ventral spinal cord. C7-T1: The disc height is well-preserved. There is loss of disc signal seen. Mild disc osteophyte complex is seen. Mild facet hypertrophy is seen. Moderate bilateral neural foraminal narrowing is seen. No central canal narrowing is seen. IMPRESSION: Multiple levels of significant cervical spine degenerative change can be seen, which are worst inferiorly. I am prescribing a short course of narcotic pain medication for you. These are potentially dangerous and addictive medications that should be used carefully. These medications may constipate you. Take an atqm-rtn-tqplfby stool softener (docusate) twice daily with plenty of water while taking these medications. If you go 24 hours without a bowel movement, take dptw-iyh-rsmsomq miralax, per package instructions. Do not drink or drive while taking these medications. If you received narcotic or sedating medications while in the emergency department, do not drive for 24 hours. Store this medication in a safe, secure place and out of reach of children. It is a violation of federal law to give or sell this medication to another person or to use in a manner other than prescribed. The ED will not refill narcotic prescriptions, including prescriptions lost or stolen. To dispose of unwanted medications: 1. [facility] at [address] in [place] has a medication drop box. They accept prescription medications (in pill form) Tuesday through Tuesday 9:00 a.m. to 5:00 p.m. 2. The [facility] Police Department accepts prescription medications (in pill form only) for disposal year round. Call for more information. 3. Contact the [facility] for the next [facility] sponsored prescription drug collection event. , [phone], or [phone]; Note that many narcotic pain relievers also contain Tylenol/acetaminophen. Please ensure that your total dose of acetaminophen from all sources does not exceed 3 g (3000 mg) per day. Forms: PCP List Discharge Date/Time: 08/15/23 12:38
[2023-08-15] MEDS: oxyCODONE 5 MG TABLET PO STA (12:08)
--- NOTE | 2023-08-15 12:16 | MRI Report ---
PROCEDURE: Cervical Spine WO INDICATIONS: neck pain into R arm; weakness TECHNIQUE: Noncontrast sagittal T1 spin echo and T2 fast spin echo, sagittal STIR, foraminal oblique sagittal T2 fast spin echo, and axial gradient echo or T2 fast spin echo through the cervical spine. COMPARISON: Correlation is made with neck CT angiogram: 08/03/2021. FINDINGS: Image quality: Excellent. Alignment and Curvature: There is normal bony alignment. Bone Marrow: Marrow demonstrates normal overall signal. Spinal Cord: Visualized spinal cord has normal size and signal. No cerebellar tonsillar herniation. Paraspinous Soft Tissues: No paravertebral masses. Prevertebral soft tissues are normal in thicknes s. C2-C3: The disc height is well-preserved. There is loss of disc signal seen. Moderate disc osteop hyte complex is seen. There there is mild right-sided and moderate left-sided facet hypertrophy. Mod erate bilateral neuroforaminal narrowing can be seen, left worse than right. No central canal narrowi ng is seen. C3-C4: Mild loss of disc height and disc signal are seen. Moderate disc osteophyte complex is se en, which is eccentric to the right. There is a mild central disc osteophyte protrusion. There is mod erate right-sided and at least moderate left-sided facet hypertrophy. Moderate to severe bilateral ne uroforaminal narrowing can be seen. Moderate central canal narrowing is seen, with minimal mass effec t upon the ventral spinal cord. C4-C5: The disc height is well-preserved. There is loss of disc signal seen. Moderate disc osteop hyte complex is seen. There is a central disc osteophyte protrusion. Note is made of an annular fissu re posteriorly. Moderate facet hypertrophy is seen. There is moderate right-sided and mild to modera te left-sided neuroforaminal narrowing. Mild to moderate central canal narrowing is seen, with minima l mass effect upon the ventral spinal cord. C5-C6: Moderate loss of disc height and signal are seen. Moderate disc osteophyte complex is seen, w hich is eccentric to the right. Moderate facet hypertrophy is seen. There is moderate to severe righ t-sided and mild to moderate left-sided neuroforaminal narrowing. Mild to moderate central canal narr owing is seen, with minimal mass effect upon the ventral spinal cord. C6-C7: Moderate loss of disc height and signal are seen. Moderate disc osteophyte complex is seen, w ith a central/left disc osteophyte protrusion. There is moderate right-sided and mild left-sided face t hypertrophy. There is moderate to severe bilateral neuroforaminal narrowing seen. Moderate central canal narrowing is seen. Associated mass effect is seen upon the ventral spinal cord. C7-T1: The disc height is well-preserved. There is loss of disc signal seen. Mild disc osteophyte c omplex is seen. Mild facet hypertrophy is seen. Moderate bilateral neural foraminal narrowing is se en. No central canal narrowing is seen. IMPRESSION: Multiple levels of significant cervical spine degenerative change can be seen, which are worst inferi thania. Reviewed by: Sylvester Ortiz MD on 08/15/2023 11:15 AM [facility] Approved by: Sylvester Ortiz MD on 08/15/2023 11:15 AM [facility] Station ID: [id number]
[2023-08-15 12:44] VITALS: BP 186/81; O2SAT 96
== END 2023-08-15 12:38 | disposition home or self-care (01) ==
LOC: ED 09:27
DX: M54.2 Cervicalgia (principal); I10 Essential (primary) hypertension; Z87.891 Personal history of nicotine dependence
CPT/HCPCS: 72141; 99283; 99284; A9270; J7512

== ENCOUNTER 2023-08-23 10:33 | Outpatient (CLI) | payer MEDICARE, OTHER | END 2023-08-23 10:34 | disposition critical access hospital (66) | LOC: EMS 10:33 | DX: M54.2 Cervicalgia (principal); R07.89 Other chest pain; M25.511 Pain in right shoulder | CPT/HCPCS: A0425; A0429 ==

== ENCOUNTER 2023-08-23 10:50 | Emergency (ER) | payer MEDICARE, OTHER ==
[2023-08-23 11:22] LABS: BASOPHILS % (AUTO) 0.1 %; EOSINOPHILS % (AUTO) 0.4 %; HCT - HEMATOCRIT 46.6 % (42.0-52.0); HGB - HEMOGLOBIN 15.2 g/dL (14.0-18.0); LYMPHOCYTES # (AUTO) 2.1 10^3/uL (1.5-3.5); LYMPHOCYTES % (AUTO) 20.1 %; MEAN CORPUSCULAR HEMOGLOBIN 30.6 pg (27.0-31.0); MEAN CORPUSCULAR HGB CONC 32.6 g/dL (32.0-36.0); MEAN CORPUSCULAR VOLUME 93.8 fL (80.0-94.0); MEAN PLATELET VOLUME 9.1 fL (7.4-11.4); MONOCYTES # (AUTO) 0.9 10^3/uL (0.0-1.0); MONOCYTES % (AUTO) 8.6 %; NEUTROPHILS # (AUTO) 7.5 10^3/uL (1.5-6.6); NEUTROPHILS % (AUTO) 70.4 %; PLT - PLATELET COUNT 261 10^3/uL (130-450); RED BLOOD COUNT 4.97 10^6/uL (4.70-6.10); RED CELL DISTRIBUTION WIDTH 13.3 % (12.0-15.0); WHITE BLOOD COUNT 10.6 x10^3/uL (4.8-10.8)
--- NOTE | 2023-08-23 11:23 | ED Physician Documentation ---
History of Present Illness - Stated complaint Stated Complaint: CP - Chief complaint Chief Complaint: Ext Problem - History obtained from History obtained from: Patient, EMS - History of Present Illness Timing: Today Pain level max: 9 Pain level now: 9 - Additonal information Additional information: Patient is an 82-year-old male who is brought into the emergency department by EMS for shoulder pain. Took oxycodone at home without relief. Has been seen here previously for neck pain, had an MRI that showed disc degeneration. Was placed on prednisone and oxycodone. He states that he is still having the pain. Worse with movement, nothing makes it better. He states he did not take his omeprazole this morning and had a burning in his chest earlier this morning that felt like his usual GERD. No shortness of breath. No nausea. No vomiting. Review of Systems Constitutional: denies: Fever, Chills GI: denies: Vomiting, Diarrhea Skin: denies: Rash Musculoskeletal: denies: Back pain Neurologic: denies: Focal weakness, Numbness, Headache PD PAST MEDICAL HISTORY - Past Medical History Past Medical History: Yes Cardiovascular: Hypertension, High cholesterol, Other Respiratory: None Neuro: CVA, TIA Endocrine/Autoimmune: None GI: GERD : Benign prostate hypertrophy, Other HEENT: None Psych: None Musculoskeletal: None Derm: None - Past Surgical History Past Surgical History: Yes - Present Medications Home Medications: Ambulatory Orders Medication Instructions Recorded Confirmed Atorvastatin Calcium 40 mg PO DAILY 08/03/21 08/23/23 Omeprazole Magnesium 20 mg PO DAILY 08/03/21 08/23/23 Aspirin [Aspirin EC] 81 mg PO DAILY 10/26/21 08/23/23 Cyclobenzaprine [Flexeril] 5 - 10 mg PO TID PRN #15 tablet 08/14/23 08/23/23 Oxycodone HCl/Acetaminophen 1 each PO Q6H PRN #14 tablet 08/15/23 08/23/23 [Percocet 5-325 mg Tablet] HYDROmorphone [Dilaudid] 2 mg PO Q6H PRN #12 tablet 08/23/23 Meloxicam [Mobic] 7.5 mg PO BID PRN #20 tablet 08/23/23 - Allergies Allergies/Adverse Reactions: Allergies Allergy/AdvReac Type Severity Reaction Status Date / Time No Known Drug Allergies Allergy Verified 08/23/23 11:01 - Social History Does the pt smoke?: No Smoking Status: Never smoker Does the pt drink ETOH?: No Does the pt have substance abuse?: No - Immunizations Immunizations are current?: Yes - POLST Patient has POLST: No PD ED PE NORMAL - Vitals Vital signs reviewed: Yes - General General: Alert and oriented X 3, No acute distress - HEENT HEENT: Atraumatic, PERRL, Moist mucous membranes - Neck Neck: Supple, no meningeal sign, No bony TTP - Cardiac Cardiac: RRR, Strong equal pulses - Respiratory Respiratory: No respiratory distress, Clear bilaterally - Abdomen Abdomen: Soft, Non tender, Non distended - Derm Derm: Warm and dry - Extremities Extremities: Other (Limited range of motion of the right shoulder secondary to pain. Mild tenderness about the glenohumeral joint. No swelling. No redness. No warmth. Neurovascular intact) - Neuro Neuro: Alert and oriented X 3 - Psych Psych: Normal mood, Normal affect Results - Vitals Vitals: Vital Signs - 24 hr 08/23/23 08/23/23 08/23/23 10:57 11:03 11:52 Temperature 36.1 C L Heart Rate 82 70 72 Respiratory 21 19 18 Rate Blood Pressure 159/94 H 181/102 H 152/86 H O2 Saturation 100 99 94 08/23/23 12:44 Temperature Heart Rate 84 Respiratory 14 Rate Blood Pressure 145/82 H O2 Saturation 94 Oxygen O2 Source Room air - EKG (time done) 1055 EKG releavant findings:: EKG personally interpreted by author of this note. Relevant findings are: Rate: Rate (enter#) (73) Rhythm: NSR [place]: Normal Intervals: Normal [place] QRS: Normal Ischemia: Normal ST segments, Q waves (III) - Labs Labs: Laboratory Tests 08/23/23 08/23/23 11:14 11:14 WBC 10.6 RBC 4.97 Hgb 15.2 Hct 46.6 MCV 93.8 MCH 30.6 MCHC 32.6 RDW 13.3 Plt Count 261 MPV 9.1 Neut # (Auto) 7.5 H Lymph # (Auto) 2.1 [place] # (Auto) 0.9 Eos # (Auto) 0.0 Baso # (Auto) 0.0 Absolute Nucleated RBC 0.00 Nucleated RBC % 0.0 Sodium 136 Potassium 4.2 Chloride 101 Carbon Dioxide 28 Anion Gap 7.0 BUN 21 H Creatinine 0.9 Estimated GFR (MDRD) 81 L Glucose 96 Calcium 8.8 Total Bilirubin 0.8 AST 14 ALT 15 Alkaline Phosphatase 46 Troponin I High Sens 9.6 Total Protein 6.8 Albumin 3.9 Globulin 2.9 Albumin/Globulin Ratio 1.3 Lipase 10 L - Rads (name of study) Chest x-ray Relevant Findings:: Final report received, See rad report R shoulder xray Relevant Findings:: Final report received, See rad report PD Medical Decision Making - ED course Complexity details: reviewed results, re-evaluated patient, considered differential (No ST elevation [place], no aortic dissection, no PE, no tension pneumothorax, no aortic aneurysm), d/w patient ED course: Patient's chest pain seems more consistent with his GERD and less consistent with cardiac etiology. No acute findings on chest x-ray or right shoulder x- ray. He was given Dilaudid and Toradol here. Pain much improved. Recommend a shoulder brace/sling. Possible cervical radiculopathy causing the shoulder pain versus rotator cuff pain. Recommend he follow-up with orthopedics. He states he has a referral for this already. No evidence of septic joint. No evidence of ACS. No evidence of referred pain from the abdomen. Abdomen is soft, nontender nondistended. Lungs are clear to auscultation. Patient counseled regarding signs and symptoms for which I believe and urgent re-evaluation would be necessary. Patient with good understanding of and agreement to plan and is comfortable going home at this time This document was made in part using voice recognition software. While efforts are made to proofread this document, sound alike and grammatical errors may occur. Departure - Departure Disposition: 01 Home, Self Care Clinical Impression: Cervical radiculopathy Shoulder pain Qualifiers: Chronicity: acute Laterality: right Qualified Code(s): M25.511 - Pain in right shoulder Condition: Good Instructions: ED Cervical Radiculopathy, ED Shoulder Pain [facility] Follow-Up: Hari Reyes MD [Primary Care Provider] - Within 1 week Prescriptions: HYDROmorphone [Dilaudid] 2 mg PO Q6H PRN #12 tablet PRN Reason: shoulder pain Meloxicam [Mobic] 7.5 mg PO BID PRN #20 tablet PRN Reason: Pain Comments: Your pressure present was sent to the [facility] pharmacy. You can use a shoulder brace that can be used for rotator cuff injuries to help with your pain as well. You can find these on [email or web address]. Please follow-up with your doctor for further care. Your doctor can refer you to a content development specialist for injections into your neck. Please continue your other medications. Please return if you worsen. I am prescribing a short course of narcotic pain medication for you. These are potentially dangerous and addictive medications that should be used carefully. These medications may constipate you. Take an muzv-yfc-fanpacf stool softener (docusate) twice daily with plenty of water while taking these medications. If you go 24 hours without a bowel movement, take krdr-isl-tjydlxt miralax, per package instructions. Do not drink or drive while taking these medications. If you received narcotic or sedating medications while in the emergency department, do not drive for 24 hours. Store this medication in a safe, secure place and out of reach of children. It is a violation of federal law to give or sell this medication to another person or to use in a manner other than prescribed. The ED will not refill narcotic prescriptions, including prescriptions lost or stolen. To dispose of unwanted medications: 1. [facility] at [address] in [place] has a medication drop box. They accept prescription medications (in pill form) Tuesday through Tuesday 9:00 a.m. to 5:00 p.m. 2. The [facility] Police Department accepts prescription medications (in pill form only) for disposal year round. Call for more information. 3. Contact the [facility] for the next [facility] sponsored prescription drug collection event. , [phone], or [phone]; Forms: PCP List Discharge Date/Time: 08/23/23 12:58
[2023-08-23 11:38] LABS: ALBUMIN 3.9 g/dL (3.2-5.5); ALBUMIN/GLOBULIN RATIO 1.3 (1.0-2.2); BILIRUBIN,TOTAL 0.8 mg/dL (0.2-1.0); CALCIUM 8.8 mg/dL (8.5-10.3); CREATININE 0.9 mg/dL (0.6-1.3); POTASSIUM 4.2 mmol/L (3.5-4.5); TOTAL PROTEIN 6.8 g/dL (6.4-8.9)
--- NOTE | 2023-08-23 11:38 | XRAY Report ---
PROCEDURE: Chest 1V INDICATIONS: Chest Pain TECHNIQUE: One view of the chest was acquired. COMPARISON: None. FINDINGS: Surgical changes and devices: None. Lungs and pleura: No pleural effusions or pneumothorax. Lungs are clear. Mediastinum: Mediastinal contours appear normal. Heart size is normal. Bones and chest wall: No suspicious bony lesions. Overlying soft tissues appear unremarkable. IMPRESSION: No acute cardiopulmonary process. Reviewed by: Char Ryder MD on 08/23/2023 11:36 AM [facility] Approved by: Char Ryder MD on 08/23/2023 11:36 AM [facility] Station ID: [id number]
[2023-08-23 11:39] LABS: TROPONIN I HIGH SENSITIVITY 9.6 ng/L (2.3-19.7)
[2023-08-23] MEDS: KETOROLAC 30 MG/ML VIAL IVP STA (11:53)
[2023-08-23] MEDS: HYDROmorphone 1 MG/ML CARPUJECT IVP STA (11:54)
[2023-08-23 11:56] VITALS: O2SAT 94
--- NOTE | 2023-08-23 12:36 | XRAY Report ---
PROCEDURE: Shoulder 2+V RT INDICATIONS: R shoulder pain TECHNIQUE: 3 views of the shoulder were acquired. COMPARISON: None. FINDINGS: Bones: No fractures or dislocations. No suspicious bony lesions. Visualized ribs appear intact. Soft tissues: No suspicious soft tissue calcifications. The visualized lungs are within normal limi ts. IMPRESSION: No acute fracture. No osseous lesion. If symptoms and/or clinical suspicion for patholog y continue, further assessment with repeat plain films, or advanced imaging (e.g., CT, MRI, or bone s can) is recommended for further assessment. Reviewed by: Char Pino MD on 08/23/2023 12:34 PM PST Approved by: Char Pino MD on 08/23/2023 12:34 PM PST Station ID: [id number]
[2023-08-23] MEDS: HYDROmorphone 2 MG TABLET PO STA (12:42)
[2023-08-23 12:45] VITALS: BP 145/82
== END 2023-08-23 12:58 | disposition home or self-care (01) ==
LOC: EDUNIT# → ED 10:50
DX: M54.12 Radiculopathy, cervical region (principal); M25.511 Pain in right shoulder; R07.89 Other chest pain
CPT/HCPCS: 36415; 71045; 73030; 80053; 83690; 84484; 85025; 93005; 96374; 96375; 99284; A9270; J1170